=== PATIENT | male | born 1950 | race Caucasian/White ===

== ENCOUNTER → 2018-12-22 | Outpatient (CLI) | payer OTHER | LOC: COL.RAD 07:34 | DX: R10.9 Unspecified abdominal pain (principal) ==

== ENCOUNTER 2020-05-16 09:28 | Emergency (ER) | payer OTHER ==
[~2020-05-16] VITALS: Ht 175.3 cm; Wt 81.8 kg
[2020-05-16 09:34] VITALS: BP 157/88; TEMP 97
[2020-05-16] MEDS ORDERED: AMOXICILLIN 8751 TAB PO (10:13)
[2020-05-16] MEDS ORDERED: NORCO 325 MG-51 TAB PO (10:14)
[2020-05-16 10:35] VITALS: PULSE 85
== END 2020-05-16 09:30 | disposition home or self-care (01) ==
LOC: COL.ER 09:28
DX: S61.255A Open bite of left ring finger without damage to nail, initial encounter (principal); S62.635A Displaced fracture of distal phalanx of left ring finger, initial encounter for closed fracture; W54.0XXA Bitten by dog, initial encounter; Y93.K1 Activity, walking an animal